=== PATIENT | male | born 1945 | race Caucasian/White ===

== ENCOUNTER 2019-02-06 06:06 | Outpatient (CLI) | payer MEDICARE ==
[~2019-02-06] VITALS: Ht 177.8 cm; Wt 90.7 kg
[2019-02-06] MEDS ORDERED: DIGO250T PO (09:22)
== END 2019-02-06 09:31 | disposition home or self-care (01) ==
LOC: PREOP 06:06
PROVIDERS: ATTEND Otolaryngology Otolaryngology/Facial Plastic Surgery
DX: Z01.818 Encounter for other preprocedural examination (principal)

== ENCOUNTER 2019-02-13 06:44 | Day surgery (SDC) | payer MEDICARE ==
[~2019-02-13] VITALS: Ht 177.8 cm; Wt 90.7 kg
[2019-02-13] VITALS (10 sets, daily range): BP systolic 112–135; BP diastolic 61–88
[~2019-02-13 06:44] MED LIST: DIGO250T PO
[2019-02-13] MEDS ORDERED: PHENYLEPHRINE 0.5% NASAL SPR (NEO-SYNEPHRINE) REG ONE (07:35)
[2019-02-13] MEDS ORDERED: COCAINE HCL 4% 2 ML SYR ONE (07:35)
[2019-02-13] MEDS ORDERED: MUPIROCIN 2% OINT 22 GM (BACTROBAN) TUBE ONE (07:36)
[2019-02-13] MEDS ORDERED: LIDOCAINE/EPI 1%-1:100,000 (XYLOCAINE) 20ML ONE (07:36)
--- NOTE | 2019-02-13 07:37 | Progress Note-Pre Operative ---
Pre-Operative Progress Note H&P Reviewed The H&P was reviewed, patient examined and no changes noted. Date Seen by Provider: Feb 13, 2019 Time Seen by Provider: 07:15 Date H&P Reviewed: Feb 13, 2019 Time H&P Reviewed: 07:15 Pre-Operative Diagnosis: Displaced Nasal Fracture AVRIL FLOOD MD Feb 13, 2019 07:36
[2019-02-13] MEDS ORDERED: DEXAMETHASONE 10 MG/ML (DECADRON) 1 ML VIAL ONE (07:40)
[2019-02-13] MEDS ORDERED: SEVOFLURANE (ULTANE) 15 ML INHAL SOLN ONE ×2 (07:40→08:31)
[2019-02-13] MEDS ORDERED: LIDOCAINE PF 2% 5 ML (XYLOCAINE) VIAL ONE (07:40)
[2019-02-13] MEDS ORDERED: fentaNYL INJECTION 100 MCG/2 ML AMP ONE (07:40)
[2019-02-13] MEDS ORDERED: proPOfol 200 MG/20 ML (DIPRIVAN) VIAL IV ONE (07:40)
[2019-02-13] MEDS ORDERED: ONDANSETRON 4 MG/2 ML (SDV) Z0FRAN ONE (07:40)
[2019-02-13] MEDS ORDERED: LACTATED RINGERS 1,000 ML IV PRN (07:51)
[2019-02-13] MEDS ORDERED: GLYCOPYRROLATE 0.2 MG/ML (ROBINUL) 2 ML VIAL ONE (08:21)
--- NOTE | 2019-02-13 08:29 | Progress Note-Post Operative ---
Post-Operative Progess Note Surgeon (s)/Fiscal Clerk (s) Surgeon AVRIL FLOOD MD Fiscal Clerk n/a Pre-Operative Diagnosis Displaced Nasal Fracture Post-Operative Diagnosis same Post-Op Procedure Note Date of Procedure: Feb 13, 2019 Name of Procedure Performed: Closed Reduction of Nasal Fracture Description & Findings Description and Findings: n/a Anesthesia Type lma Estimated Blood Loss minimal Packing none. Specimen(s) collected/removed 1 aquaplast nasal splint AVRIL FLOOD MD Feb 13, 2019 08:29
[2019-02-13] MEDS ORDERED: HYDROcodone/APAP 5 MG/325 MG (LORTAB) TAB PO PRN (08:30)
[2019-02-13] MEDS ORDERED: ACETAMINOPHEN 325 MG TABLET PO PRN (08:30)
[2019-02-13] MEDS ORDERED: morphine INJ 10 MG/ML 1ML (SYR OR VIAL) IVP ONE (08:45)
[2019-02-13] MEDS ORDERED: ONDANSETRON 4 MG/2 ML (SDV) Z0FRAN IVP PRN (08:45)
--- NOTE | 2019-02-13 10:09 | Anesthesia-General Post-Op ---
General Patient Condition Mental Status/LOC: Same as Preop Cardiovascular: Satisfactory Nausea/Vomiting: Absent Respiratory: Satisfactory Pain: Controlled Complications: Absent Post Op Complications Complications None Follow Up Care/Instructions Patient Instructions None needed. Anesthesia/Patient Condition Patient Condition Patient is doing well, no complaints, stable vital signs, no apparent adverse anesthesia problems. No complications reported per nursing. JOSE ELIAS MCKEE CRNA Feb 13, 2019 10:09
== END 2019-02-13 10:15 | disposition home or self-care (01) ==
LOC: SDC 06:44
PROVIDERS: ATTEND Otolaryngology Otolaryngology/Facial Plastic Surgery
DX: S02.2XXA Fracture of nasal bones, initial encounter for closed fracture (principal); I49.9 Cardiac arrhythmia, unspecified; Z86.718 Personal history of other venous thrombosis and embolism; Z79.899 Other long term (current) drug therapy
CPT/HCPCS: 87081